=== PATIENT | male | born 1990 | race Asian ===

== ENCOUNTER 2019-08-21 12:50 | Emergency (ER) | payer OTHER ==
[2019-08-21] MEDS ORDERED: NS 0.9% 1000 ML** 1,000 ML IV ONE (14:31)
[2019-08-21] MEDS ORDERED: Lidocaine 2% VISCOUS* 15 ML UDC PO ONE (14:31)
[2019-08-21] MEDS ORDERED: Al Hydrox/Mg Hydrox/Simet LIQ* 30 ML UDC PO ONE (14:31)
--- NOTE | 2019-08-21 14:32 | ED ---
Abdominal Pain/Male - HPI Summary HPI Summary: This patient is a 29 year old M with a history of stomach ulcers presenting to ED with a chief complaint of left-sided abdominal pain since one week ago. Patient recently arrived from [place] via an international long flight. He has also had diet changes. Patient denies fever, diarrhea, vomiting, blood in stool. Patient states his symptoms are similar to the time he had stomach ulcers. Patient has never had abdominal surgery. He denies a history of DM. Patient does not drink alcohol and he does not take aspirin or Motrin. The pain is not worse after eating is rather consistent throughout the day. The patient rates the pain 3/10 in severity. Symptoms aggravated by nothing. Symptoms alleviated by nothing. - History of Current Complaint Chief Complaint: EDAbdPain Stated Complaint: STOMACH PAIN PER PT Time Seen by Provider: 08/21/19 14:16 Hx Obtained From: Patient Onset/Duration: Gradual Onset, Lasting Weeks - 1 week, Still Present Timing: Constant, Lasting Weeks - 1 week Severity Initially: Mild Severity Currently: Mild Pain Intensity: 3 Pain Scale Used: 0-10 Numeric Location: Diffuse - Left-sided Aggravating Factor(s): Nothing Alleviating Factor(s): Nothing Associated Signs And Symptoms: Negative: Fever, Blood in Stool, Nausea, Vomiting , Diarrhea - Allergies/Home Medications Allergies/Adverse Reactions: Allergies Allergy/AdvReac Type Severity Reaction Status Date / Time No Known Allergies Allergy Verified 08/21/19 13:04 Home Medications: Home Medications Cyanocobalamin TAB* [Vitamin B12 TAB*] 500 mcg PO DAILY 08/21/19 [History Confirmed 08/21/19] [place]-3 Fatty Acids (Nf) [Fish Oil (NF)] 1,000 mg PO DAILY 08/21/19 [History Confirmed 08/21/19] PMH/Surg Hx/FS Hx/Imm Hx GI History: Reports: Hx Ulcer Denies: Hx Crohn's Disease Sensory History: Denies: Hx Legally Blind, Hx Deafness Opthamlomology History: Denies: Hx Legally Blind EENT History: Denies: Hx Deafness - Surgical History Surgery Procedure, Year, and Place: Denies abdominal surgery Infectious Disease History: No Infectious Disease History: Denies: Traveled Outside the [place] in Last 30 Days - Family History Known Family History: Negative: Seizure Disorder - Social History Alcohol Use: None Hx Substance Use: No Substance Use Type: Reports: None Hx Tobacco Use: No Smoking Status (MU): Never Smoked Tobacco Review of Systems Negative: Fever Gastrointestinal: Negative - Blood in stool Positive: Abdominal Pain. Negative: Vomiting, Diarrhea All Other Systems Reviewed And Are Negative: Yes Physical Exam - Summary Physical Exam Summary: Constitutional: Well-developed, Well-nourished, Alert. (-) Distressed Skin: Warm, Dry HENT: Normocephalic; Atraumatic Eyes: Conjunctiva normal Neck: Musculoskeletal ROM normal neck. (-) JVD, (-) Stridor, (-) Tracheal deviation Cardio: Rhythm regular, rate normal, Heart sounds normal; Intact distal pulses; The pedal pulses are 2+ and symmetric. Radial pulses are 2+ and symmetric. (-) Murmur Pulmonary/Chest wall: Effort normal. (-) Respiratory distress, (-) Wheezes, (-) Rales Abd: soft, non-distended, non-tender to palpation, normal bowel sounds Musculoskeletal: (-) Edema Lymph: (-) Cervical adenopathy Neuro: Alert, Oriented x3 Psych: Mood and affect Normal Triage Information Reviewed: Yes Vital Signs On Initial Exam: Initial Vitals Temp Pulse Resp BP Pulse Ox 98.8 F 72 18 151/95 99 08/21/19 12:59 08/21/19 12:59 08/21/19 12:59 08/21/19 12:59 08/21/19 12:59 Vital Signs Reviewed: Yes Procedures - Sedation Patient Received Moderate/Deep Sedation with Procedure: No Diagnostics - Vital Signs Vital Signs Temp Pulse Resp BP Pulse Ox 08/21/19 12:59 98.8 F 72 18 151/95 99 - Laboratory Result Diagrams: 08/21/19 14:35 08/21/19 14:35 Lab Statement: Any lab studies that have been ordered have been reviewed, and results considered in the medical decision making process. - Radiology Abdomen XR Radiology Interpretation Completed By: Radiologist Summary of Radiographic Findings: #. Moderately large volume of stool present throughout the colon through the descending segment. No evidence for bowel obstruction. Dr. Helm has reviewed this radiology report. Re-Evaluation - Re-Evaluation First Eval Re-Evaluation Time: 16:50 Comment: Patient recently changed to have a vegetarian diet. He reports he has bowel movements daily, but his stomach feels gassy. Discussed results with patient. Patient will be discharged with GI follow-up. Patient understands and agrees with this plan. Abdominal Pain Male Course/Dx - Course Course Of Treatment: This patient is a 29 year old M with a history of stomach ulcers presenting to ED with a chief complaint of left-sided abdominal pain since one week ago. In the ED course, patient received Maalox, Xylocaine, and fluids. Blood work revealed MPV 7.3, chloride 100, ALT 99, ESR 24. Abdomen XR: # . Moderately large volume of stool present throughout the colon through the descending segment. No evidence for bowel obstruction. Patient recently changed diet, which could be contributing to his pain. Discussed results with patient. Patient will be discharged with dx of abdominal pain and GI follow-up. Patient understands and agrees with this plan. As noted, patient with known history of reported gastric ulcers diagnosed 6 years ago back home. KUB revealed abundant stool, discussed with patient, states he recently changed his diet to all vegetarian which has led to increase abdominal gas. Thus symptoms possibly related to dietary change. As noted on exam, abdomen soft, nontender. Patient comfortable with discharg home. Given GI referral for further evaluation if symptoms persist. - Diagnoses Provider Diagnoses: Abdominal pain Discharge ED - Sign-Out/Discharge Documenting (check all that apply): Patient Departure - Discharge - Discharge Plan Condition: Stable Disposition: HOME Patient Education Materials: Abdominal Pain (ED) Referrals: Lars Evangelista DO [Primary Care Provider] - 3 Days El Zayas MD [Medical Doctor] - 3 Days Additional Instructions: Please follow-up with your primary care physician and Dr. Zayas (GI) in 2-3 days. PLEASE RETURN TO THE ER FOR WORSENING OR CHANGING SYMPTOMS. It was a pleasure taking care of you today. - Billing Disposition and Condition Condition: STABLE Disposition: Home - Attestation Statements Document Initiated by Scribe: Yes Documenting Scribe: Lars Vickers Provider For Whom Pam is Documenting (Include Credential): Sy Helm DO Scribe Attestation: Lars Edmond scribed for Sy Helm DO on 08/21/19 at 1835. Scribe Documentation Reviewed: Yes Provider Attestation: The documentation as recorded by the Lars john accurately reflects the service I personally performed and the decisions made by , Sy Helm, DO Status of Scribe Document: Viewed
[2019-08-21 14:49] LABS: ABS Eosinophils 0.2 10^3/ul (0-0.6); ABS Lymphocytes 2.4 10^3/ul (1.0-4.8); ABS Monocytes 0.4 10^3/ul (0-0.8); ABS Neutrophils 3.9 10^3/ul (1.5-7.7); Eosinophil % 2.5 %; Hematocrit 43 % (42-52); Hemoglobin 15.2 g/dL (14.0-18.0); Lymphocyte % 34.7 %; Mean Corpuscular HGB Conc 35 g/dL (31-36); Mean Corpuscular Hemoglobin 29 pg (27-31); Mean Corpuscular Volume 83 fL (80-94); Mean Platelet Volume 7.3 fL (7.4-10.4); Nucleated Red Blood Cells % 0.2; Platelet Count 263 10^3/uL (150-450); Red Cell Distribution Width 13 % (10-15)
[2019-08-21 15:06] LABS: Albumin 4.6 g/dL (3.2-5.2); Albumin/Globulin Ratio 1.4 (1-3); BUN/Creatinine Ratio 16.7 (8-20); Calcium 9.3 mg/dL (8.6-10.3); EGFR African American 144.5 (>60); EGFR Non-African American 119.4 (>60); Globulin 3.3 g/dL (2-4); Potassium 4.2 mmol/L (3.5-5.0); Total Bilirubin 0.4 mg/dL (0.2-1.0); Total Protein 7.9 g/dL (6.4-8.9)
[2019-08-21 15:21] LABS: C Reactive Protein 1.04 mg/L (<8.01)
[2019-08-21 16:39] LABS: Erythrocyte Sed Rate 24 mm/Hr (0-14)
[2019-08-21 16:53] VITALS: BP 130/86
== END 2019-08-21 16:57 | disposition home or self-care (01) ==
LOC: ED 12:50
DX: R10.12 Left upper quadrant pain (principal); K59.00 Constipation, unspecified
CPT/HCPCS: 36415; 74018; 80053; 83690; 85025; 85652; 86140; 96360; 99283; A9270-GY